=== PATIENT | female | born 1980 | race Caucasian/White ===

== ENCOUNTER 2023-06-19 10:39 | Outpatient (OUT) | payer OTHER, SELFPAY ==
--- NOTE | 2023-06-19 10:41 | MM_ITS ---
Patient: JULIANA ARGUETA Exam Date: 06/19/2023 : 1980 Gender:F Ordering : MRS. TANNER LONG . Admission #: [id number] Family : Order #: [id number] CLICK HERE TO VIEW EXAM RADIOLOGY REPORT PROCEDURE: MM TOMOSYNTHESIS SCREENING BI COMPARISON: MG MAMM SCREEN 3D [place] CAD, 01/31/2022. MG MAMM SCREEN [place] W CAD, 11/16/2020. INDICATIONS: Screening mammogram Z12.31 Calculator Name NCI Breast Cancer Risk Assessment Tool 5 Year Breast Cancer Risk 1.00% Lifetime Breast Cancer Risk 13.20% Personal Breast Cancer No Personal Ovarian Cancer No Treatments None Family Cancers Grandmother-paternal with breast cancer at age ~50; Aunt-paternal with breast cancer at age 50; Grandmother-paternal with uterine,lung cancer at age ~60. LOCATION: [facility] BREAST COMPOSITION: Scattered areas fibroglandular density. FINDINGS: DIAGNOSTIC CATEGORY 1--NEGATIVE. NO CHANGE FROM COMPARISON ASSESSMENT. Scattered benign-appearing lymph nodes are present. RIGHT BREAST: No significant suspicious finding. LEFT BREAST: No significant suspicious finding. RECOMMENDATIONS: ROUTINE MAMMOGRAM AND CLINICAL EVALUATION IN 12 MONTHS. PLEASE NOTE: A NORMAL MAMMOGRAM DOES NOT EXCLUDE THE POSSIBILITY OF BREAST CANCER. A CLINICALLY SUSPICIOUS PALPABLE LUMP SHOULD BE BIOPSIED. Dictated by: Omar Mendez MD on 06/19/2023 at 12:23 Approved by: Omar Mendez MD on 06/19/2023 at 12:25
== END 2023-06-19 10:40 | disposition home or self-care (01) ==
LOC: MAMMO 10:39
PROVIDERS: PCP Nurse Practitioner; Visit Provider Nurse Practitioner
DX: Z12.31 Encounter for screening mammogram for malignant neoplasm of breast (principal); Z80.3 Family history of malignant neoplasm of breast; Z80.1 Family history of malignant neoplasm of trachea, bronchus and lung; Z80.8 Family history of malignant neoplasm of other organs or systems
CPT/HCPCS: 77063; 77067

== ENCOUNTER 2024-08-12 10:27 | Outpatient (OUT) | payer OTHER, SELFPAY ==
--- NOTE | 2024-08-12 10:31 | MM_ITS ---
Patient Name: JULIANA ARGUETA MR#: [id number] : 1980 Exam Date: 08/12/2024 Ordering Doctor: TANNER LONG . RADIOLOGY REPORT PROCEDURE: MM TOMOSYNTHESIS SCREENING BI COMPARISON: MM TOMOSYNTHESIS SCREENING BI, 06/19/2023. MG MAMM SCREEN 3D [place] CAD, 01/31/2022. MG MAMM SCREEN [place] W CAD, 11/16/2020. INDICATIONS: Screening Calculator Name NCI Breast Cancer Risk Assessment Tool 5 Year Breast Cancer Risk 1.10% Lifetime Breast Cancer Risk 13.00% Personal Breast Cancer No Personal Ovarian Cancer No Treatments None Family Cancers Grandmother-paternal with breast cancer at age ~50; Aunt-paternal with breast cancer at age 50; Grandmother-paternal with uterine,lung cancer at age ~60. LOCATION: [facility] BREAST COMPOSITION: There are scattered areas of fibroglandular density. FINDINGS: DIAGNOSTIC CATEGORY 1--NEGATIVE. RIGHT BREAST: No significant suspicious finding. No significant change has occurred. LEFT BREAST: No significant suspicious finding. No significant change has occurred. RECOMMENDATIONS: ROUTINE MAMMOGRAM AND CLINICAL EVALUATION IN 12 MONTHS. PLEASE NOTE: A NORMAL MAMMOGRAM DOES NOT EXCLUDE THE POSSIBILITY OF BREAST CANCER. A CLINICALLY SUSPICIOUS PALPABLE LUMP SHOULD BE BIOPSIED. Dictated by: Kralos Ramirez M.D. on 08/12/2024 at 12:04 Approved by: Karlos Ramirez M.D. on 08/12/2024 at 12:05
== END 2024-08-12 10:28 | disposition home or self-care (01) ==
LOC: MAMMO 10:27
PROVIDERS: PCP Nurse Practitioner; Visit Provider Nurse Practitioner
DX: Z12.31 Encounter for screening mammogram for malignant neoplasm of breast (principal); Z80.3 Family history of malignant neoplasm of breast; Z80.1 Family history of malignant neoplasm of trachea, bronchus and lung; Z80.8 Family history of malignant neoplasm of other organs or systems
CPT/HCPCS: 77063; 77067

== ENCOUNTER 2025-07-17 12:13 | Outpatient (OUT) | payer OTHER, SELFPAY ==
--- NOTE | 2025-07-17 12:18 | XR_ITS ---
The [address] [address] Patient Name: JULIANA ARGUETA MRN: [id number] date: 1980 Sex: F Assigned Patient Location: [facility] Current Patient Location: [facility] Accession/Order Number: [id number] Exam Date: 07/17/2025 12:20 Report Date: 07/17/2025 12:52 At the request of: TANNER LONG Procedure: XR cervical spine 5V CERVICAL SPINE - 5 views: CLINICAL HISTORY: Chronic worsening right-sided neck pain. No reported injury. TECHNIQUE: AP, lateral, both oblique and odontoid views were obtained. There is reversal of the normal cervical lordosis no acute fractures are identified. There is slight retrolisthesis of C5 on C6 and C6 on C7 where there is also disc space narrowing and endplate spurring. Mild facet disease is also visualized. On the left, there is slight bony foraminal encroachment at C3-4 and C6-7. On the right, mild to moderate bony foraminal encroachment is present at C5-6. The atlantoaxial relationship is maintained. There is no prevertebral soft tissue swelling. XR/XR cervical spine 5V IMPRESSION: LOSS OF NORMAL CERVICAL LORDOSIS. DEGENERATIVE CHANGES, DESCRIBED. Impression dictated by: Birdie Whatley M.D. 07/17/2025 12:52 PM Dictation Location: [place] [address] Electronically authenticated by: [id number] Y Date: 07/17/2025 12:52
--- OUTSIDE RECORDS SUMMARY | 2025-07-17 12:19 | XMS_ITS | CCD ---
Author Organization [facility] Care Team Providers Care Film Library Clerk Name Role Phone SHREYA, DR ETHAN Swan Admitting Unavailable WEST, DR ETHAN Swan Attending Unavailable WEST, DR ETHAN Swan Consulting Unavailable WEST, DR ETHAN Swan Admitting Unavailable WEST, DR ETHAN Swan Attending Unavailable KARASIK, DR RAMOS Admitting Unavailable KARASIK, DR RAMOS Attending Unavailable KARASIK, DR RAMOS Consulting Unavailable WEST, DR ETHAN Swan Consulting Unavailable WEST, DR ETHAN Swan Admitting Unavailable WEST, DR ETHAN Swan Attending Unavailable WEST, DR ETHAN Swan Consulting Unavailable Amy, Lindsay Gonzales Primary Care Physician Amy, Lindsay Gonzales Attending Unavailable Amy, Lindsay Gonzales Admitting Unavailable Amy, Lindsay Gonzales Attending Unavailable Amy, Lindsay L Admitting Unavailable Amy, Lindsay Gonzales Attending Unavailable Amy, Lindsay Gonzales Attending Unavailable ISSAC, OVI Haley Attending Unavailable ISSAC, OVI Haley Attending Unavailable Amy, Lindsay Gonzales Attending Unavailable Amy, Lindsay Gonzales Admitting Unavailable Amy, Lindsay Gonzales Attending Unavailable Amy, Lindsay Gonzales Attending Unavailable Amy, Lindsay Gonzales Attending Unavailable Amy, Lindsay L Attending Unavailable Medications Current Medications Medication Drug Class(es) Dates Sig (Normalized) Sig (Original) ergocalciferol 1.25 mg oral capsule (1 source) Provitamin D2 Compound Start: 07-04-2024 take 1 capsule by mouth every week ergocalciferol 50,000 intl units Cap See Instructions, TAKE 1 CAPSULE BY MOUTH EVERY WEEK, # 4 cap(s), Refills(s) 11, Pharmacy: [id number], 170, cm, 03/29/24 11:37:00 EDT, Height/Length Dosing, 90.9, kg, 03/29/24 11:37:00 EDT, Weight Dosing Start Date: 07/04/24 Status: Ordered fluconazole 150 mg oral tablet (2 sources) Azole Antifungal Start: 05-29-2023 take 1 tablet by mouth once Diflucan 150 mg Tab 150 mg = 1 tab(s), Oral, Once, # 1 tab(s), Refills(s) 0, Pharmacy: [facility]/pharmacy #[id number], 169, cm, 05/29/23 14:16:00 EDT, Height/Length Dosing, 90, kg, 05/29/23 14:16:00 EDT, Weight Dosing Start Date: 05/29/23 Status: Ordered Problems Active Problems Problem Classification Problem Date Documented Da te Episodic/Chronic Malaise and fatigue (2 sources) Fatigue 05-11-2023 Episodic Mycoses (2 sources) Candidiasis of vagina 05-29-2023 Episodic Other nutritional; endocrine; and metabolic disorders (2 sources) Body mass index 30+ - obesity 05-11-2023 Chronic Unclassified (2 sources) Patient encounter status 05-29-2023 Unclassified (1 source) Cancer cervix screening status 08-01-2024 Past or Other Problems Problem Classification Problem Date Documented Da te Episodic/Chronic Other screening for suspected conditions (not mental disorders or infectious disease) (4 sources) Encounter for screening mammogram for malignant neoplasm of breast; Translations: [ENC SCR MAMMO MALIG NEOPLASM BREAST] Onset: 01-31-2022 Episodic Residual codes; unclassified (1 source) Family history of malignant neoplasm of breast; Translations: [FAMILY HX MALIG NEOPLASM OF BREAST] Onset: 02-04-2022 Episodic Residual codes; unclassified (1 source) Family history of malignant neoplasm of trachea, bronchus and lung; Translations: [FAM HX MALIG NEOPLSM TRACH BRON LNG] Onset: 02-04-2022 Episodic Residual codes; unclassified (1 source) Family history of malignant neoplasm of other genital organs; Translations: [FAM HX MALIG NEOPLSM OTH GENIT ORGN] Onset: 02-04-2022 Episodic Results Test Name Value Interpretation Reference Range Facility Ambulatory Visit Summaryon 1 Ambulatory Visit Summary Ambulatory Visit Summary JIMENA ARGUETA :1980 Visit Date:07/14/2025 Ambulatory Visit Instructions Your Diagnosis Neck pain Trapezius strain Tests Performed XR Spine Cervical 4 or 5 Views -- Results Pending -- Please visit your patient portal for your results or contact your primary care physician. Your Care Team Attending Physician - Lindsay Pérez Primary Care Physician - Lindsay Pérez This Is Your Medications List ergocalciferol (ergocalciferol 50,000 intl units Cap) escitalopram (Lexapro 10 mg Tab) Procedures Performed Appendectomy, delivery. Discharge Vitals Temperature (Temporal Artery) 36.2 ???C Heart Rate (Peripheral) 62 Respiratory Rate 18 Blood Pressure 122/84 Height 170.0 cm Height 67 in Weight 85.4 kg Weight 188.275 lb BMI 29.55 What to do next Scheduled Follow-Up Appointments Thursday 1:00 PM EDT With: Lindsay Pérez Where: [address] [address]- Medications What How Much When Instructions Unchanged ergocalciferol (ergocalciferol 50,000 intl units Cap) See instructions TAKE 1 CAPSULE BY MOUTH EVERY WEEK Unchanged escitalopram (Lexapro 10 mg Tab) 1 Tablets By Mouth Every day Allergies No Known Allergies Problems Ongoing - Any problem that you are currently receiving treatment for. Anxiety BMI 31.0-31.9,adult Cervical cancer screening Fatigue Mild major depression Neck pain Vaginal yeast infection Well woman exam Patient Survey You may receive a survey via text or e-mail asking about your office visit. Please share your experience with us by completing your survey. We appreciate your feedback and thank you for choosing us for your care. Patient Portal You may access all of your results and other medical record information on our secure patient portal. If you are not signed up for this yet, please contact [employer] at [phone] to get signed up today. Language Information Language assistance services are available as needed. Normal [facility] Family Medicine Office/Clini c Noteon 07-14-2025 Family Medicine Office/Clinic Note Family Medicine Office/Clinic Note HPI Staff Pt is here for neck, RT shoulder, back pain Onset: a year ago she said it has got worse in the last month she goes to the gym a lot, she had severe reaction to steroid inj. that almost paralyzed she can barley turn her head when she tries to turn She said the muscles in her neck hurts she has knot on RT side of back Has arthritis in her shoulders She does go to the gym 5-6 days a week History of Present Illness pt presents with neck pain and right trapezius pain. she has had issues with this in the past Review of Systems PHQ Score Initial Depression Screen Score: 0 SCORE Physical Exam Vitals & Measurements T: 36.2 ???C(Temporal Artery) HR: 62(Peripheral) RR: 18 BP: 122/84 SpO2: 99% HT: 170.0 cm HT: 67 in WT: 85.4 kg WT: 188.275 lb BMI: 29.55 General: alert, no acute distress ENMT: oral mucosa moist, no pharyngeal erythema or exudate Cardiovascular: regular rate and rhythm, normal peripheral perfusion Respiratory: Lungs CTA, respirations non labored Extremities: no deformity, no trauma Neurological: oriented x 4, LOC appropriate for age, CN II-XII intact, motor strength equal & normal bilaterally, speech normal Assessment/Plan 1. Neck pain (M54.2: Cervicalgia) pt c/o neck pain that shoots up to the base of her skull. will start with x ray of cervical spine. Kenalog 40 and Toradol 30 given in office today. pt was also encouraged to go to massage therapy. she has been to PT for this in the past and is currently going to the gym and doing stretches as well. RTC 2 weeks. if no improvement may order MRI or refer to ortho for further evaluation Ordered: meloxicam, 15 mg = 1 tab(s), Oral, Daily, # 30 tab(s), Refills(s) 0, Pharmacy: [facility]/pharmacy #[id number], 170, cm, 07/14/25 11:46:00 EDT, Height/Length Dosing, 85.4, kg, 07/14/25 11:46:00 EDT, Weight Dosing XR Spine Cervical 4 or 5 Views 2. Trapezius strain (S46.811A: Strain of other muscles, fascia and tendons at shoulder and upper arm level, right arm, initial encounter) right trapezius pain and tightness. Ordered: meloxicam, 15 mg = 1 tab(s), Oral, Daily, # 30 tab(s), Refills(s) 0, Pharmacy: [facility]/pharmacy #[id number], 170, cm, 07/14/25 11:46:00 EDT, Height/Length Dosing, 85.4, kg, 07/14/25 11:46:00 EDT, Weight Dosing 3. BMI 29.0-29.9,adult (Z68.29: Body mass index [BMI] 29.0-29.9, adult) BMI education Ordered: meloxicam, 15 mg = 1 tab(s), Oral, Daily, # 30 tab(s), Refills(s) 0, Pharmacy: [facility]/pharmacy #[id number], 170, cm, 07/14/25 11:46:00 EDT, Height/Length Dosing, 85.4, kg, 07/14/25 11:46:00 EDT, Weight Dosing Orders: ergocalciferol, See Instructions, TAKE 1 CAPSULE BY MOUTH EVERY WEEK, # 4 cap(s), Refills(s) 11, Pharmacy: [id number], 170, cm, 01/20/25 8:52:00 EDT, Height/Length Dosing, 87.2, kg, 01/20/25 8:52:00 EDT, Weight Dosing ergocalciferol, See Instructions, TAKE 1 CAPSULE BY MOUTH EVERY WEEK, # 4 cap(s), Refills(s) 11, Pharmacy: [id number], 170, cm, 03/29/24 11:37:00 EDT, Height/Length Dosing, 90.9, kg, 03/29/24 11:37:00 EDT, Weight Dosing Follow-up No qualifying data available Problem List/Past Medical History Ongoing Anxiety BMI 29.0-29.9,adult BMI 31.0-31.9,adult Cervical cancer screening Fatigue Mild major depression Neck pain Vaginal yeast infection Well woman exam Historical No qualifying data Procedure/Surgical History Appendectomy, delivery. Medications ergocalciferol 50,000 intl units Cap, See Instructions Lexapro 10 mg Tab, 10 mg= 1 tab(s), Oral, Daily, 4 refills meloxicam 15 mg Tab, 15 mg= 1 tab(s), Oral, Daily Allergies No Known Allergies Social History Alcohol Past, Beer, Wine, Liquor, 1-2 times per week, Stopped age 42 Years., 08/01/2024 Substance Abuse Past. Marijuana. 1-2 times per month. Previous treatment: None., 07/31/2024 Tobacco Former smoker, quit more than 30 days ago, quit 2021 Tobacco Use:., 07/14/2025 Family History Dementia: Grandparent. Hypertension: Mother and Father. Primary malignant neoplasm of female breast: Grandparent. Primary malignant neoplasm of lung: Grandparent. Uterine cancer: Grandparent. Normal [facility] Comment on above: Result Comment: Elec tronically Signed By: Lindsay Pérez\.br\Date and Time Signed: 07/14/25 12:29 EDT Family Medicine Office/Clini c Noteon 01-20-2025 Family Medicine Office/Clinic Note Family Medicine Office/Clinic Note HPI Staff Jimena is a 44 year old female presenting for 5 week follow up JOSE GUADALUPE 12/16/24 HORACIO PHQ-9: 8 HORACIO 10 started Lexapro Follow up for Mental Status: Medication adherence- Yes, takes medication as prescribed Medication refill needed: _ Suicidal thoughts-Not at this time Most recent HORACIO: 4 Most recent PHQ: 2 Pt states she has noticed a difference and is feeling better History of Present Illness pt presents today for follow up on depression and anxiety Review of Systems PHQ Score Initial Depression Screen Score: 0 SCORE Physical Exam Vitals & Measurements HR: 68(Peripheral) RR: 18 BP: 110/70 SpO2: 98% HT: 170.0 cm HT: 67 in WT: 87.15 kg WT: 192.133 lb BMI: 30.16 General: alert, no acute distress ENMT: oral mucosa moist, no pharyngeal erythema or exudate Cardiovascular: regular rate and rhythm, normal peripheral perfusion Respiratory: Lungs CTA, respirations non labored Extremities: no deformity, no trauma Neurological: oriented x 4, LOC appropriate for age, CN II-XII intact, motor strength equal & normal bilaterally, speech normal Assessment/Plan 1. Anxiety (F41.9: Anxiety disorder, unspecified) HORACIO has improved. pt is feeling better. will refill 10mg dose. all questions answered. RTC as needed Ordered: escitalopram, 5 mg = 1 tab(s), Oral, Daily, # 90 tab(s), Refills(s) 0, Pharmacy: [facility]/pharmacy #[id number], 170, cm, 12/16/24 9:11:00 EDT, Height/Length Dosing, 86.5, kg, 12/16/24 9:11:00 EDT, Weight Dosing 2. BMI 30.0-30.9,adult (Z68.30: Body mass index [BMI] 30.0-30.9, adult) BMI education 3. Non-smoker (Z78.9: Other specified health status) continue not smoking Ordered: escitalopram, 5 mg = 1 tab(s), Oral, Daily, # 90 tab(s), Refills(s) 0, Pharmacy: [facility]/pharmacy #[id number], 170, cm, 12/16/24 9:11:00 EDT, Height/Length Dosing, 86.5, kg, 12/16/24 9:11:00 EDT, Weight Dosing Orders: escitalopram, 10 mg = 1 tab(s), Oral, Daily, # 90 tab(s), Refills(s) 1, Pharmacy: [facility]/pharmacy #[id number], 170, cm, 01/20/25 8:52:00 EDT, Height/Length Dosing, 87.2, kg, 01/20/25 8:52:00 EDT, Weight Dosing Follow-up No qualifying data available Problem List/Past Medical History Ongoing Anxiety BMI 31.0-31.9,adult Cervical cancer screening Fatigue Mild major depression Vaginal yeast infection Well woman exam Historical No qualifying data Procedure/Surgical History Appendectomy, delivery. Medications ergocalciferol 50,000 intl units Cap, See Instructions Lexapro 10 mg Tab, 10 mg= 1 tab(s), Oral, Daily, 1 refills Allergies No Known Allergies Social History Alcohol Past, Beer, Wine, Liquor, 1-2 times per week, Stopped age 42 Years., 08/01/2024 Substance Abuse Past. Marijuana. 1-2 times per month. Previous treatment: None., 07/31/2024 Tobacco Former smoker, quit more than 30 days ago, quit 2021 Tobacco Use:., 08/01/2024 Family History Dementia: Grandparent. Hypertension: Mother and Father. Primary malignant neoplasm of female breast: Grandparent. Primary malignant neoplasm of lung: Grandparent. Uterine cancer: Grandparent. Normal [facility] Comment on above: Result Comment: Elec tronically Signed By: Lindsay Pérez\.br\Date and Time Signed: 01/20/25 09:28 EDT Family Medicine Office/Clini c Noteon 03-14-2025 Family Medicine Office/Clinic Note Family Medicine Office/Clinic Note [facility] Staff Jimena is a 44 year old female presenting to discuss mood HORACIO: 10 PHQ-9: 8 Pt doesn't like the way she is feeling, doesn't feel like herself feeling very pinto, snappy. Pt feels she is gluten intolderant History of Present Illness pt presents today with worsening mood swings Review of Systems PHQ Score Initial Depression Screen Score: 6 SCORE Detailed Depression Screen Score: 8 Total Depression Screen Score: 14 Physical Exam Vitals & Measurements HR: 66(Peripheral) RR: 18 BP: 126/84 SpO2: 99% HT: 67 in HT: 170.0 cm WT: 86.5 kg WT: 190.7 lb BMI: 29.93 General: alert, no acute distress ENMT: oral mucosa moist, no pharyngeal erythema or exudate Cardiovascular: regular rate and rhythm, normal peripheral perfusion Respiratory: Lungs CTA, respirations non labored Extremities: no deformity, no trauma Neurological: oriented x 4, LOC appropriate for age, CN II-XII intact, motor strength equal & normal bilaterally, speech normal Assessment/Plan 1. Mild major depression (F32.0: Major depressive disorder, single episode, mild) PQH9-8 pt feels she is just very irritable and anxious. is a little tearful during visit. will start lexapro 5mg. pt will return in 5 weeks for follow up. denies suicidal ideations. states I just don't want to be so angry all the time. Ordered: escitalopram, 5 mg = 1 tab(s), Oral, Daily, # 90 tab(s), Refills(s) 0, [id number], 170, cm, 12/16/24 9:11:00 EDT, Height/Length Dosing, 86.5, kg, 12/16/24 9:11:00 EDT, Weight Dosing 2. Anxiety (F41.9: Anxiety disorder, unspecified) HORACIO 10 see above Ordered: escitalopram, 5 mg = 1 tab(s), Oral, Daily, # 90 tab(s), Refills(s) 0, [id number], 170, cm, 12/16/24 9:11:00 EDT, Height/Length Dosing, 86.5, kg, 12/16/24 9:11:00 EDT, Weight Dosing 3. BMI 29.0-29.9,adult (Z68.29: Body mass index [BMI] 29.0-29.9, adult) BMI education given Ordered: escitalopram, 5 mg = 1 tab(s), Oral, Daily, # 90 tab(s), Refills(s) 0, [id number], cm, 12/16/24 9:11:00 EDT, Height/Length Dosing, 86.5, kg, 12/16/24 9:11:00 EDT, Weight Dosing 4. Non-smoker (Z78.9: Other specified health status) continue not smoking Ordered: escitalopram, 5 mg = 1 tab(s), Oral, Daily, # 90 tab(s), Refills(s) 0, [id number], cm, 12/16/24 9:11:00 EDT, Height/Length Dosing, 86.5, kg, 12/16/24 9:11:00 EDT, Weight Dosing fluconazole, 150 mg = 1 tab(s), Oral, Once, # 1 tab(s), Refills(s) 0, [id number] 169, cm, 05/29/23 14:16:00 EDT, Height/Length Dosing, 90, kg, 05/29/23 14:16:00 EDT, Weight Dosing Follow-up No qualifying data available Problem List/Past Medical History Ongoing Anxiety BMI 31.0-31.9,adult Cervical cancer screening Fatigue Mild major depression Vaginal yeast infection Well woman exam Historical No qualifying data Procedure/Surgical History Appendectomy, delivery. Medications ergocalciferol 50,000 intl units Cap, See Instructions Lexapro 5 mg oral tablet, 5 mg= 1 tab(s), Oral, Daily Allergies No Known Allergies Social History Alcohol Past, Beer, Wine, Liquor, 1-2 times per week, Stopped age 42 Years., 08/01/2024 Substance Abuse Past. Marijuana. 1-2 times per month. Previous treatment: None., 07/31/2024 Tobacco Former smoker, quit more than 30 days ago, quit 2021 Tobacco Use:., 08/01/2024 Family History Dementia: Grandparent. Hypertension: Mother and Father. Primary malignant neoplasm of female breast: Grandparent. Primary malignant neoplasm of lung: Grandparent. Uterine cancer: Grandparent. Normal [facility] Comment on above: Result Comment: Elec tronically Signed By: Lindsay Pérez\Date and Time Signed: 12/16/24 10:23 EDT PAP [id number] 08-09-2024 Cytology report Cyto stain Doc (Cvx/Vag) Note Invalid Interpretation Code [facility] Comment on above: Result Comment: TEST S RESULT FLAG UNITS REF RANGE LAB Clinician Provided Cytology Information No. of containers..01 ThinPrep Vial DIAGNOSIS: 01 NEGATIVE FOR INTRAEPITHELIAL LESION OR MALIGNANCY. Specimen adequacy: 01 Satisfactory for evaluation. Endocervical and/or squamous metaplastic cells (endocervical component) are present. Performed by: Buck Macias, Perforator Operator (ASCP) . 01 Note: Note 01 The Pap smear is a screening test designed to aid in the detection of premalignant and malignant conditions of the uterine cervix. It is not a diagnostic procedure and should not be used as the sole means of detecting cervical cancer. Both false-positive and false-negative reports do occur. Test Methodology: Note 01 This liquid based ThinPrep(R) pap test was screened with the use of an image guided system. HPV Genotype Reflex Note 01 Criteria not met, HPV Genotype not performed. FLAG LEGEND: L-Low Normal,H-High Normal,LL-Alert Low,HH-Alert High <-Panic Low,>-Panic High,A-Abnormal,AA-Critical Abnormal Performed at: [address] [id number] Mitzi Hyman MD, Performed By: #### 1 [id number] #### [facility] [address] [place] [address] HPV 16+18+31+33+35+39+45+5 1+52+56+58+59+66+68 DNA Probe+sig amp Ql (Cvx) Negative Invalid Interpretation Code Negative [facility] Comment on above: Result Comment: This nucleic acid amplification test detects fourteen high-risk HPV types (16,18,31,33,35,39,45,51,52,56,58,59,66,68) without differentiation. Performed at: [address] [id number] MD Boogie Cartagena Performed at: =[address] [id number] MD Boogie Cartagena Performed By: #### 1 [id number] #### [facility] [address] [place] [address] Ambulatory Visit Summary Ambulatory Visit Summary Ambulatory Visit Summary JIMENA ARGUETA :1980 Visit Date:08/01/2024 Ambulatory Visit Instructions Your Diagnosis Well woman exam Cervical cancer screening BMI 28.0-28.9,adult Overweight (BMI 25.0-29.9) Former smoker Your Care Team Attending Physician - Lindsay Pérez Primary Care Physician - Lindsay Pérez This Is Your Medications List ergocalciferol (ergocalciferol 50,000 intl units Cap) fluconazole (Diflucan 150 mg Tab) Procedures Performed Appendectomy, delivery. Discharge Vitals Temperature (Temporal Artery) 36.5 ???C Heart Rate (Peripheral) 78 Respiratory Rate 18 Blood Pressure 116/68 Height 170.0 cm Height 67 in Weight 83.25 kg Weight 183.15 lb BMI 28.81 Medications What How Much When Why Instructions Unchanged ergocalciferol (ergocalciferol 50,000 intl units Cap) See instructions TAKE 1 CAPSULE BY MOUTH EVERY WEEK Unchanged fluconazole (Diflucan 150 mg Tab) 1 Tablets By Mouth Once Well woman exam Vaginal yeast infection BMI 31.0-31.9,adult Non-smoker Allergies No Known Allergies Problems Ongoing - Any problem that you are currently receiving treatment for. BMI 31.0-31.9,adult Cervical cancer screening Fatigue Vaginal yeast infection Well woman exam Patient Survey You may receive a survey via text or e-mail asking about your office visit. Please share your experience with us by completing your survey. We appreciate your feedback and thank you for choosing us for your care. Normal [facility] CBC w/ Auto Diffon 4 Basophils/100 WBC (Bld) 0.2 % Normal 0.0-2.0 [facility] Comment on above: Performed By: #### 2 [id number] #### [facility] [address] [place] [address] Basophils/Leukocytes Auto (Bld) [Pure # fraction] 0.0 E9/L Normal 0.0-0.2 [facility] Comment on above: Performed By: #### 2 [id number] #### [facility] [address] [place] [address] Eosinophils (Bld) [#/Vol] 0.0 E9/L Normal 0.0-0.5 [facility] Comment on above: Performed By: #### 2 [id number] #### [facility] [address] [place] [address] Eosinophils/100 WBC (Bld) 0.2 % Normal 0.0-8.0 [facility] Comment on above: Performed By: #### 2 [id number] #### [facility] [address] [place] [address] Erythrocyte distribution width (RBC) [Ratio] 13.0 % Normal 10.9-14.2 [facility] Comment on above: Performed By: #### 2 [id number] #### [facility] [address] [place] [address] Hematocrit (Bld) [Volume fraction] 39.9 % Normal 34.0-46.0 [facility] Comment on above: Performed By: #### 2 [id number] #### [facility] [address] [place] [address] Hemoglobin (Bld) [Mass/Vol] 13.7 g/dL Normal 12.0-16.0 [facility] Comment on above: Performed By: #### 2 [id number] #### [facility] [address] [place] [address] Lymphocytes (Bld) [#/Vol] 1.4 E9/L Normal 1.0-4.0 [facility] Comment on above: Performed By: #### 2 [id number] #### [facility] [address] [place] [address] Lymphocytes/100 WBC (Bld) 30.9 % Normal 14.0-50.0 [facility] Comment on above: Performed By: #### 2 [id number] #### [facility] [address] [place] [address] MCH (RBC) [Entitic mass] 30.6 pg Normal 27.0-34.0 [facility] Comment on above: Performed By: #### 2 [id number] #### [facility] [address] [place] [address] MCHC (RBC) [Mass/Vol] 34.3 g/dL Normal 31.4-36.0 [facility] Comment on above: Performed By: #### 2 [id number] #### [facility] [address] [place] [address] MCV (RBC) [Entitic vol] 89.0 fL Normal 80.0-100.0 [facility] Comment on above: Performed By: #### 2 [id number] #### [facility] [address] [place] [address] Monocytes (Bld) [#/Vol] 0.3 E9/L Normal 0.2-1.0 [facility] Comment on above: Performed By: #### 2 [id number] #### [facility] [address] [place] [address] Neutrophils (Bld) [#/Vol] 2.9 E9/L Normal 2.0-7.5 [facility] Comment on above: Performed By: #### 2 [id number] #### [facility] [address] [place] [address] Neutrophils/100 WBC (Bld) 62.5 % Normal 36.0-75.0 [facility] Comment on above: Performed By: #### 2 [id number] #### [facility] [address] [place] [address] Platelet 226.0 E9/L Normal 150.0-500.0 [facility] Comment on above: Performed By: #### 2 [id number] #### [facility] [address] [place] [address] Platelet mean volume (Bld) [Entitic vol] 9.6 fL Normal 6.4-10.8 [facility] Comment on above: Performed By: #### 2 [id number] #### [facility] [address] [place] [address] RBC (Bld) [#/Vol] 4.5 E12/L Normal 4.3-5.9 [facility] Comment on above: Performed By: #### 2 [id number] #### [facility] [address] [place] [address] WBC corrected for nucl RBC Auto (Bld) [#/Vol] 4.6 E9/L Normal 4.0-11.0 [facility] Comment on above: Performed By: #### 2 [id number] #### [facility] [address] [place] [address] CHEMISTRYOrdered By: SYSTEM SYSTEM on 08-01-2024 25-hydroxyvitamin D3 [Mass/Vol] 51.5 ng/mL Normal 30.0 - 100.0 ng/mL Remisol Chem Albumin [Mass/Vol] 4.1 g/dL Normal 3.3 - 5.0 gm/dL [facility] Albumin/Globulin [Mass ratio] 1.9 {ratio} Normal 1.1 - 2.2 [facility] ALP [Catalytic activity/Vol] 32 [iU]/d Normal 21 - 98 Int._Unit/L [facility] ALT No additional P-5'-P [Catalytic activity/Vol] 11 [iU]/d Normal 6 - 46 Int._Unit/L [facility] Anion gap [Moles/Vol] 8 mmol/L Normal 6 - 16 mEq/L R em[facility] AST [Catalytic activity/Vol] 16 [iU]/d Normal 5 - 43 Int._Unit/L [facility] Bilirubin [Mass/Vol] 0.4 mg/dL Normal 0.0 - 1 .1 mg/dL [facility] Calcium [Mass/Vol] 8.9 mg/dL Normal 8.9 - 11. 1 mg/dL [facility] Chloride [Moles/Vol] 106 mmol/L Normal 101 - 1 11 mmol/L [facility] Cholesterol [Mass/Vol] 160 mg/dL Normal 120 - 200 mg/dL [facility] Cholesterol in HDL [Mass/Vol] 50 mg/dL Invalid Interpretation Code [facility] Comment on above: Result Comment: '>= 60 LOW RISK' '<= 40 HIGH RISK' Cholesterol in LDL [Mass/Vol] 103 mg/dL Normal <=129mg/dL [facility] Cholesterol in VLDL [Mass/Vol] 13 mg/dL Normal 7 - 40 mg/dL [facility] CO2 [Moles/Vol] 27 mmol/L Normal 21 - 31 mmol/L [facility] Creatinine [Mass/Vol] 0.7 mg/dL Normal 0.5 - 1.3 mg/dL [facility] eGFR 109 mL/min/1.73 m2 Normal >=59mL/mi n/1. 73 m2 [facility] Globulin (S) [Mass/Vol] 2.2 g/dL Normal 1.4 - 4.0 gm/dL [facility] Glucose [Mass/Vol] 89 mg/dL Normal 55 - 199 mg/dL [facility] Potassium [Moles/Vol] 3.9 mmol/L Normal 3.5 - 5.3 mmol/L [facility] Protein [Mass/Vol] 6.3 g/dL Normal 6.0 - 7.8 gm/dL [facility] Sodium [Moles/Vol] 137 mmol/L Normal 135 - 145 mmol/L [facility] Triglyceride [Mass/Vol] 66 mg/dL Normal <=149mg/dL [facility] TSH Qn 3.74 m[IU]/L Normal 0.34 - 5.60 mcIU/mL [facility] Urea nitrogen [Mass/Vol] 9 mg/dL Normal 5 - 21 mg/dL [facility] Urea nitrogen/Creatinine [Mass ratio] 13 mg/mg Normal 10 - 20 [facility] CMPon 08-01-2024 Albumin [Mass/Vol] 4.1 g/dL Normal 3.3-5.0 [facility] Comment on above: Performed By: #### 2 [id number] #### [facility] [address] [place] [address] Albumin/Globulin (S) [Mass conc ratio] 1.9 Normal 1.1-2.2 [facility] Comment on above: Performed By: #### 2 [id number] #### [facility] [address] [place] [address] ALP [Catalytic activity/Vol] 32 Int._Unit/L Normal 21-98 [facility] Comment on above: Performed By: #### 2 [id number] #### [facility] [address] [place] [address] ALT No additional P-5'-P [Catalytic activity/Vol] 11 Int._Unit/L Normal 6-46 [facility] Comment on above: Performed By: #### 2 [id number] #### [facility] [address] [place] [address] Anion gap [Moles/Vol] 8 mmol/L Normal 6-16 [facility] Comment on above: Performed By: #### 2 [id number] #### [facility] [address] [place] [address] AST [Catalytic activity/Vol] 16 Int._Unit/L Normal 5-43 [facility] Comment on above: Performed By: #### 2 [id number] #### [facility] [address] [place] [address] Bilirubin [Mass/Vol] 0.4 mg/dL Normal 0.0-1.1 [facility] Comment on above: Performed By: #### 2 [id number] #### [facility] [address] [place] [address] Calcium [Mass/Vol] 8.9 mg/dL Normal 8.9-11.1 [facility] Comment on above: Performed By: #### 2 [id number] #### [facility] [address] [place] [address] Chloride [Moles/Vol] 106 mmol/L Normal 101-111 [facility] Comment on above: Performed By: #### 2 [id number] #### [facility] [address] [place] [address] CO2 [Moles/Vol] 27 mmol/L Normal 21-31 [facility] Comment on above: Performed By: #### 2 [id number] #### [facility] [address] [place] [address] Creatinine [Mass/Vol] 0.7 mg/dL Normal 0.5-1.3 [facility] Comment on above: Performed By: #### 2 [id number] #### [facility] [address] [place] [address] Globulin (S) [Mass/Vol] 2.2 g/dL Normal 1.4-4.0 [facility] Comment on above: Performed By: #### 2 [id number] #### [facility] [address] [place] [address] Glucose [Mass/Vol] 89 mg/dL Normal 55-199 [facility] Comment on above: Performed By: #### 2 [id number] #### [facility] [address] [place] [address] Potassium [Moles/Vol] 3.9 mmol/L Normal 3.5-5.3 [facility] Comment on above: Performed By: #### 2 [id number] #### [facility] [address] [place] [address] Protein [Mass/Vol] 6.3 g/dL Normal 6.0-7.8 [facility] Comment on above: Performed By: #### 2 [id number] #### [facility] [address] [place] [address] Sodium [Moles/Vol] 137 mmol/L Normal 135-145 [facility] Comment on above: Performed By: #### 2 [id number] #### [facility] [address] [place] [address] Urea nitrogen [Mass/Vol] 9 mg/dL Normal 5-21 [facility] Comment on above: Performed By: #### 2 [id number] #### [facility] [address] [place] [address] Urea nitrogen/Creatinine [Mass ratio] 13 No Units Normal 10-20 [facility] Comment on above: Performed By: #### 2 [id number] #### [facility] [address] [place] [address] Family Medicine Office/Clini c Noteon 08-01-2024 Family Medicine Office/Clinic Note Family Medicine Office/Clinic Note HPI Staff Jimena is a 44 year old female presenting with yearly/pap/labs Woman check up: Last pap: last year Results of lap pap: normal Where was it done: here hx: # of pregnancies... 3 abortions... 2 live births... 1 living children...1 menstrual cycle (n ormal,heavy,ect): irregular bleeding History of STD: yes 15 years ago Do you want tested for STD today: no Vaginal discharge, odor, itching: no Self breast exam at home? yes monthly Hx of breast, cervical or uterine cancer in the family: breast cancer, grandmother Hysterectomy: NA Mammogram: The Thursday @ [facility] History of Present Illness pt presents today for well woman exam Review of Systems PHQ Score Initial Depression Screen Score: 2 SCORE Physical Exam Vitals & Measurements T: 36.5 ???C(Temporal Artery) HR: 78(Peripheral) RR: 18 BP: 116/68 SpO2: 98% HT: 67 in HT: 170.0 cm WT: 83.25 kg WT: 183.15 lb BMI: 28.81 General: Well developed, well nourished, in no acute distress Neck: Neck supple. No masses or palpable cervical nodes. Trachea midline. Thyroid without nodules, masses, tenderness, or enlargement Breast: No mass, nodule, discharge, or erythema bilaterally, and no axillary lymphadenopathy Lungs: Normal respiratory effort and clear to auscultation Cardio: Regular rate and rhythm, normal S1 and S2, no murmur, no rub Abdomen: Soft, non-distended, non-tender, normal bowel sounds x4 Gyno: normal external genitalia. Urethra no discharge. Vagina normal without lesions, no vaginal discharge. Cervix normal, without lesions. Uterus normal. No adnexal masses. Pap obtained Neurologic: Grossly normal Skin: [place], moist, no tenting Lymph Nodes: No cervical adenopathy, nodes normal Mental Status: Alert and oriented x3. Normal mood and affect Assessment/Plan 1. Well woman exam (Z01.419: Encounter for gynecological examination (general) (routine) without abnormal findings) pt presents today for well woman exam. pt is due for wellness labs today as well. she is scheduled for mammogram on Thursday at [facility]. Pap obtained without difficulty. all questions answered. RTC as needed Ordered: CBC w/ Auto Diff Comprehensive Metabolic Panel Est Preventative 40 to 64 years Lipid Panel PAP w/ HPV and Genotype rflx Thyroid Stimulating Hormone 2. Cervical cancer screening (Z12.4: Encounter for screening for malignant neoplasm of cervix) pap obtained Ordered: Est Preventative 40 to 64 years [address] PAP [id number] w/ HPV and Genotype rflx 3. BMI 28.0-28.9,adult (Z68.28: Body mass index [BMI] 28.0-28.9, adult) BMI education given Ordered: Est Preventative 40 to 64 years 4. Overweight (BMI 25.0-29.9) (E66.3: Overweight) see above Ordered: Est Preventative 40 to 64 years [address] 5. Former smoker (Z87.891: Personal history of nicotine dependence) continue not smoking Ordered: Est Preventative 40 to 64 years Orders: Vitamin D 25 Hydroxy Follow-up No qualifying data available Problem List/Past Medical History Ongoing BMI 31.0-31.9,adult Cervical cancer screening Fatigue Vaginal yeast infection Well woman exam Historical No qualifying data Procedure/Surgical History Appendectomy, delivery. Medications Diflucan 150 mg Tab, 150 mg= 1 tab(s), Oral, Once, Not taking ergocalciferol 50,000 intl units Cap, See Instructions Allergies No Known Allergies Social History Alcohol Past, Beer, Wine, Liquor, 1-2 times per week, Stopped age 42 Years., 08/01/2024 Substance Abuse Past. Marijuana. 1-2 times per month. Previous treatment: None., 07/31/2024 Tobacco Former smoker, quit more than 30 days ago, quit 2021 Tobacco Use:., 08/01/2024 Family History Dementia: Grandparent. Hypertension: Mother and Father. Primary malignant neoplasm of female breast: Grandparent. Primary malignant neoplasm of lung: Grandparent. Uterine cancer: Grandparent. Normal [facility] Comment on above: Result Comment: Elec tronically Signed By: Amy MCDERMOTT, Lindsay Gonzales\.br\Date and Time Signed: 08/01/24 10:25 EDT HEMATOLOGYOrdered By: SYSTEM SYSTEM on 08-01-2024 Basophils/100 WBC (Bld) 0.2 % Normal 0.0 - 2.0 % [facility] Basophils/Leukocytes Auto (Bld) [Pure # fraction] 0.0 E9/L Normal 0.0 - 0.2 E9/L [facility] Eosinophils (Bld) [#/Vol] 0.0 E9/L Normal 0.0 - 0.5 E9/L [facility] Eosinophils/100 WBC (Bld) 0.2 % Normal 0.0 - 8.0 % [facility] Erythrocyte distribution width (RBC) [Ratio] 13.0 % Normal 10.9 - 14.2 % [facility] Hematocrit (Bld) [Volume fraction] 39.9 % Normal 34.0 - 46.0 % [facility] Hemoglobin (Bld) [Mass/Vol] 13.7 g/dL Normal 12.0 - 16.0 gm/dL [facility] Lymphocytes (Bld) [#/Vol] 1.4 E9/L Normal 1.0 - 4.0 E9/L [facility] Lymphocytes/100 WBC (Bld) 30.9 % Normal 14.0 - 50.0 % [facility] MCH (RBC) [Entitic mass] 30.6 pg Normal 27.0 - 34.0 pg [facility] MCHC (RBC) [Mass/Vol] 34.3 g/dL Normal 31.4 - 36.0 gm/dL [facility] MCV (RBC) [Entitic vol] 89.0 fL Normal 80.0 - 100.0 fL [facility] Monocytes (Bld) [#/Vol] 0.3 E9/L Normal 0.2 - 1.0 E9/L [facility] Monocytes/100 WBC (Bld) 6.2 % Normal 4.0 - 14.0 % [facility] Neutrophils (Bld) [#/Vol] 2.9 E9/L Normal 2.0 - 7.5 E9/L [facility] Neutrophils/100 WBC (Bld) 62.5 % Normal 36.0 - 75.0 % [facility] Platelet 226.0 E9/L Normal 150.0 - 500.0 E9/L [facility] Platelet mean volume (Bld) [Entitic vol] 9.6 fL Normal 6.4 - 10.8 fL [facility] RBC (Bld) [#/Vol] 4.5 E12/L Normal 4.3 - 5.9 E12/L [facility] WBC corrected for nucl RBC Auto (Bld) [#/Vol] 4.6 E9/L Normal 4.0 - 11.0 E9/L [facility] Lipid Panelon 08-01-2024 Cholesterol [Mass/Vol] 160 mg/dL Normal 120-200 [facility] Comment on above: Performed By: #### 2 [id number] #### [facility] [address] [place] [address] Cholesterol in HDL [Mass/Vol] 50 mg/dL Invalid Interpretation Code [facility] Comment on above: Result Comment: '>= 60 LOW RISK' '<= 40 HIGH RISK' Performed By: #### 2 [id number] #### [facility] [address] [place] [address] Cholesterol in LDL [Mass/Vol] 103 mg/dL Normal <=129 [facility] Comment on above: Performed By: #### 2 [id number] #### [facility] [address] [place] [address] Cholesterol in VLDL [Mass/Vol] 13 mg/dL Normal 7-40 [facility] Comment on above: Performed By: #### 2 [id number] #### [facility] [address] [place] [address] Triglyceride [Mass/Vol] 66 mg/dL Normal <=149 [facility] Comment on above: Performed By: #### 2 [id number] #### [facility] [address] [place] [address] PAP [id number] 08-01-2024 Gynecological Body Site ENDOCERVIX Normal [facility] Comment on above: Performed By: #### 1 [id number] #### [facility] [address] [place] [address] TSHon 08-01-2024 TSH Qn 3.74 m[IU]/L Normal 0.34-5.60 [facility] Comment on above: Performed By: #### 2 [id number] #### [facility] [address] [place] [address] Vitamin D 25 Hydroxyon 08-01 25-hydroxyvitamin D3 [Mass/Vol] 51.5 ng/mL Normal 30.0-100.0 [facility] Comment on above: Performed By: #### 5 [id number] #### [facility] [address] [place] [address] eGFRon 08-01-2024 eGFR 109 mL/min/1.73 m2 Normal >=59 [facility] Comment on above: Performed By: #### 1 [id number] #### [facility] [address] [place] [address] Family Medicine Office/Clini c Noteon 03-29-2024 Family Medicine Office/Clinic Note HPI Staff Jimena is a 43 year old female presenting for acute visit Right side started . Worse Thursday Acute: pulled something in back, having back pain There is lower back- morning stretches she felt something pop. Had Cortisone shot from ER 2020... She did have PT years ago for this Pain characteristics: Pain location: right side neck, shoulder blade Intensity:6/10 right now but laying down it is worse Onset: Stretching Medication used: Been icing, 4 ibuprofen this morning History of Present Illness 43 year old patient of Chaz Reyes CNP presents today with her for an acute visit for trapezius strain. She reports she was stretching on morning last week and felt something pop in the region of her right scapula. She states she can usually work a muscle strain out but this time it is not happening for her. She has tried ibuprofen, meloxicam, and ice without any relief. She states she had this back in 2020 and received a cortisone injection in the C5-C6 area of her neck. She does not want an injection in her neck today. Review of Systems PHQ Score Initial Depression Screen Score: 0 SCORE Physical Exam Vitals & Measurements HT: 67 in HT: 170 cm WT: 90.9 kg WT: 199.98 lb BMI: 31.45 General: alert, no acute distress Skin: warm, dry Head: no trauma, normocephalic Neck: Trachea midline, no adenopathy, no tenderness Cardiovascular: regular rate and rhythm, normal peripheral perfusion Respiratory: Lungs CTA, respirations non labored Back: Moderate tenderness over the left scapula region radiating into the right neck area , Normal ROM, Normal alignment. Extremities: no deformity, no trauma; full ROM of right shoulder Neurological: oriented x 4, LOC appropriate for age speech normal Psychiatric: cooperative, affect appropriate for age, normal judgement, normal psychiatric thoughts. Assessment/Plan 1. Trapezius strain (S46.819A: Strain of other muscles, fascia and tendons at shoulder and upper arm level, unspecified arm, initial encounter) Encouraged to continue with ice for discomfort Start the Medrol Dose pack as instructed Explained to patient she should not operate machinery while taking the tizanidine 4 mg one tablet po every 8 hours Encouraged to contact this provider if no improvement by Thursday Ordered: methylPREDNISolone, = 1 packet(s), Oral, As Directed, as directed on package labeling, X 6 day(s), # 21 tab(s), Refills(s) 0, Pharmacy: [facility]/pharmacy #[id number], 170, cm, 03/29/24 11:37:00 EDT, Height/Length Dosing, 90.9, kg, 03/29/24 11:37:00 EDT, Weight Dosing tizanidine, 4 mg = 1 tab(s), Oral, q8hr, X 7 day(s), # 21 tab(s), Refills(s) 0, Pharmacy: [facility]/pharmacy #[id number], 170, cm, 03/29/24 11:37:00 EDT, Height/Length Dosing, 90.9, kg, 03/29/24 11:37:00 EDT, Weight Dosing Follow-up No qualifying data available Patient Education Muscle Strain, Jqej-kq-Nagu Problem List/Past Medical History Ongoing BMI 31.0-31.9,adult Fatigue Vaginal yeast infection Well woman exam Historical No qualifying data Procedure/Surgical History Appendectomy, delivery. Medications Diflucan 150 mg Tab, 150 mg= 1 tab(s), Oral, Once, Not taking ergocalciferol 50,000 intl units Cap Medrol 4 mg Tab, 1 packet(s), Oral, As Directed tiZANidine 4 mg Tab, 4 mg= 1 tab(s), Oral, q8hr Vitamin D 50,000 intl units (1.25 mg) oral capsule, 00004 International_Unit= 1 cap(s), Oral, qWeek, 3 refills Allergies No Known Allergies Social History Tobacco Former smoker, quit more than 30 days ago, July 2022 quit Tobacco Use:. Never Smokeless Tobacco Use:. Cigarettes, Household tobacco concerns: No., 03/29/2024 Family History Dementia: Grandparent. Hypertension: Mother and Father. Primary malignant neoplasm of female breast: Grandparent. Primary malignant neoplasm of lung: Grandparent. Uterine cancer: Grandparent. Normal [facility] Comment on above: Result Comment: Elec tronically Signed By: OVI DAVENPORT CNP\.br\Date and Time Signed: 03/29/24 12:59 EDT Patient Educationon 03-29-20 Patient Education Orthopedics Muscle Strain A muscle strain, or pulled muscle, happens when a muscle is stretched beyond its normal length. This can tear some muscle fibers and cause pain. Usually, it takes 1?2 weeks to heal from a muscle strain. Full healing normally takes 5?6 weeks. What are the causes? This condition is caused when a sudden force is placed on a muscle and stretches it too far. This can happen with a fall, while lifting, or during sports. What increases the risk? You are more likely to develop a muscle strain if you are an athlete or you do a lot of physical activity. What are the signs or symptoms? ? Pain. ? Tenderness. ? Bruising. ? Swelling. ? Trouble using the muscle. How is this treated? This condition is first treated with DOMINGUEZ therapy. This involves: ? Protecting your muscle from being injured again. ? Resting your injured muscle. ? Icing your injured muscle. ? Putting pressure (compression) on your injured muscle. This may be done with a splint or elastic bandage. ? Raising (elevating) your injured muscle. Your doctor may also recommend medicine for pain. Follow these instructions at home: If you have a splint that can be taken off: ? Wear the splint as told by your doctor. Take it off only as told by your doctor. ? Check the skin around the splint every day. Tell your doctor if you see problems. ? Loosen the splint if your fingers or toes: ? Tingle. ? Become numb. ? Turn cold and blue. ? Keep the splint clean. ? If the splint is not waterproof: ? Do not let it get wet. ? Cover it with a watertight covering when you take a bath or a shower. Managing pain, stiffness, and swelling ? If told, put ice on your injured area. To do this: ? If you have a removable splint, take it off as told by your doctor. ? Put ice in a plastic bag. ? Place a towel between your skin and the bag. ? Leave the ice on for 20 minutes, 2?3 times a day. ? Take off the ice if your skin turns bright red. This is very important. If you cannot feel pain, heat, or cold, you have a greater risk of damage to the area. ? Move your fingers or toes often. ? Raise the injured area above the level of your heart while you are sitting or lying down. ? Wear an elastic bandage as told by your doctor. Make sure it is not too tight. General instructions ? Take [id number] and prescription medicines only as told by your doctor. This may include: ? Medicines for pain and swelling that are taken by mouth or put on the skin. ? Medicines to help relax your muscles. ? Limit your activity. Rest your injured muscle as told by your doctor. Your doctor may say that gentle movements are okay. ? If physical therapy was prescribed, do exercises as told by your doctor. ? Do not put pressure on any part of the splint until it is fully hardened. This may take many hours. ? Do not smoke or use any products that contain nicotine or tobacco. If you need help quitting, ask your doctor. ? Ask your doctor when it is safe to drive if you have a splint. ? Keep all follow-up visits. How is this prevented? Warm up before you exercise. This helps to prevent more muscle strains. Contact a doctor if: ? You have more pain or swelling in the injured area. Get help right away if: ? You have any of these problems in your injured area: ? Numbness. ? Tingling. ? Less strength than normal. Summary ? A muscle strain is an injury that happens when a muscle is stretched beyond normal length. ? This condition is first treated with DOMINGUEZ therapy. This includes protecting, resting, icing, adding pressure, and raising your injury. ? Limit your activity. Rest your injured muscle as told by your doctor. Your doctor may say that gentle movements are okay. ? Warm up before you exercise. This helps to prevent more muscle strains. This information is not intended to replace advice given to you by your health care provider. Make sure you discuss any questions you have with your health care provider. Document Revised: 12/09/2021 Document Reviewed: 12/09/2021 [employer] Patient Education ? 2022 [employer]. [facility] Reminderson 08-04-2023 Reminders - From: Lindsay Pérez To: [facility] - Clinical; Sent: 08/04/2023 09:54:28 EDT Show up: 08/04/2023 09:54:00 EDT Subject: Ambulatory Reminder Due Date/Time: 08/05/2023 09:53:00 EDT Let Jimena know her Vitamin D is low. I sent prescription for Vitamin D to her pharmacy. the rest of her labs are normal Results: Date Result Name Ind Value Ref Range 08/03/2023 9:45 Iron 137 mcg/dL (35 - 153) 08/03/2023 9:45 Transferrin 237 mg/dL (200 - 370) 08/03/2023 9:45 TIBC 332 mcg/dL (250 - 400) 08/03/2023 9:45 Vitamin D 25 Hydroxy ((L)) 22.5 ng/mL (30.0 - 100.0) notified patient vitamin d level is low and RX was sent to pharmacy. This could be a lot of why she feels tired. Advised patient take medicine daily and give it a good 3-4 months if still fatigued then lindsay will look into what to do next. Normal [facility] CHEMISTRYOrdered By: SYSTEM SYSTEM on 08-03-2023 25-hydroxyvitamin D3 [Mass/Vol] 22.5 ng/mL Low 30.0 - 100.0 ng/mL [facility] Comment on above: Interpretive Data: Vitamin D deficiency has been defined as a level of serum 25-OH vitamin D less than 20 ng/mL (1,2) by the [place] of [employer] and an Endocrine Society practice guideline. The Endocrine Society further defined vitamin D insufficiency as a level between 21 and 29 ng/mL (2). 1. IOM ([place]). 2010. Dietary reference intakes for calcium and D. [place]: The National Academies Press. 2. Jairon MF, Brooks EUCEDA, Tracie HOOVER, et al. Evaluation, treatment, and prevention of vitamin D deficiency: an Endocrine Society clinical practice guideline. JCEM. 2010; 96 (7):1911-30. Iron [Mass/Vol] 137 ug/dL Normal 35 - 153 mcg/dL [facility] Iron binding capacity [Mass/Vol] 332 ug/dL Normal 250 - 400 mcg/dL [facility]isol Transferrin [Mass/Vol] 237 mg/dL Normal 200 - 370 mg/dL [facility] Ironon 08-03-2023 Iron [Mass/Vol] 137 microgram/dL Normal 35-153 [facility] Comment on above: Performed By: #### 2 [id number], [id number] #### [facility] [address] [place] [address] TIBC Calculatedon 08-03-2023 Iron binding capacity [Mass/Vol] 332 microgram/dL Normal 250-400 [facility] Comment on above: Performed By: #### 2 [id number], [id number] #### [facility] [address] [place] [address] Transferrin [Mass/Vol] 237 mg/dL Normal 200-370 [facility] Comment on above: Performed By: #### 2 [id number], [id number] #### [facility] [address] [place] [address] Vitamin D 25 Hydroxyon 08-03 25-hydroxyvitamin D3 [Mass/Vol] 22.5 ng/mL Low 30.0-100.0 [facility] Comment on above: Order Comment: [place] [facility] office; waiting for specimen to be received, [id number] 08/03/2023 12:01:03 EDT Result Comment: Vit dooley D deficiency has been defined as a level of serum 25-OH vitamin D less than 20 ng/mL (1,2) by the [place] of [employer] and an Endocrine Society practice guideline. The Endocrine Society further defined vitamin D insufficiency as a level between 21 and 29 ng/mL (2). 1. IOM ([place]). 2010. Dietary reference intakes for calcium and D. [place]: The National Academies Press. 2. Jairon MF, [place], Tracie HOOVER, et al. Evaluation, treatment, and prevention of vitamin D deficiency: an Endocrine Society clinical practice guideline. JCEM. 2010; 96 (7):1911-30. Performed By: #### 2 [id number], [id number] #### [facility] [address] [place] [address] MG MAMM SCREEN 3D DOMINGO CADon 01-31-2022 MG MAMM SCREEN 3D DOMINGO CAD Patient: JIMENA ARGUETA Exam Date: 01/31/2022 : 1980 Gender:F Ordering : DR RICHARD PIMENTEL . Admission #: [id number] Family : Order #: [id number] CLICK HERE TO VIEW EXAM RADIOLOGY REPORT PROCEDURE: MAMMOGRAM SCREENING 3D BILATERAL CAD COMPARISON: MG MAMM SCREEN [place] W CAD, 11/16/2020. INDICATIONS: Screening mammography Calculator Name NCI Breast Cancer Risk Assessment Tool 5 Year Breast Cancer Risk 0.90% Lifetime Breast Cancer Risk 13.40% Personal Breast Cancer No Personal Ovarian Cancer No Treatments None Family Cancers Grandmother-paternal with breast cancer at age 50; Aunt-paternal with breast cancer at age 50; Grandmother-paternal with uterine,lung cancer at age 60. LOCATION: [facility] BREAST COMPOSITION: Scattered areas fibroglandular density. FINDINGS: DIAGNOSTIC CATEGORY 1--NEGATIVE. NO CHANGE FROM COMPARISON ASSESSMENT. RIGHT BREAST: No significant suspicious finding. LEFT BREAST: No significant suspicious finding. RECOMMENDATIONS: ROUTINE MAMMOGRAM AND CLINICAL EVALUATION IN 12 MONTHS. PLEASE NOTE: A NORMAL MAMMOGRAM DOES NOT EXCLUDE THE POSSIBILITY OF BREAST CANCER. A CLINICALLY SUSPICIOUS PALPABLE LUMP SHOULD BE BIOPSIED. Dictated by: Ethan Cash MD on 01/31/2022 at 11:17 Approved by: Ethan Cash MD on 01/31/2022 at 11:31 [facility] Encounters Encounter Date Encounter Type Care Provider Facility Start: 07-28-2025 ambulatory Lindsay L Amy Facility: [facility] Fabian Start: 07-14-2025 End: 07-14-2025 ambulatory Lindsay L Amy Facility:[facility] [place]oxie sushil Start: 01-20-2025 End: 01-20-2025 ambulatory Lindsay L Amy Facility:[facility] Roxie sushil Start: 12-16-2024 End: 12-16-2024 ambulatory Lindsay L Amy Facility:[facility] [place]oxie sushil Start: 08-01-2024 End: 08-01-2024 Lab Drop off Lindsay L Amy [facility] Start: 08-01-2024 End: 08-01-2024 ambulatory Lindsay L Amy Facility:[facility] [place] sushil Start: 03-29-2024 End: 03-29-2024 ambulatory OVI A ISSAC Facility:[facility] [place] sushil Start: 03-18-2024 End: 03-18-2024 ambulatory OVI A ISSAC Facility:[facility] [place] sushil Start: 08-03-2023 End: 08-03-2023 Lab Drop off Lindsay L Amy [facility] Start: 08-03-2023 End: 08-03-2023 ambulatory Lindsay L Amy Facility[facility] Start: 11-14-[address] ETHAN CASH Facilit y:[facility] Start: 06-27-2022 End: 10-06-[address] ETHAN CASH Facility:[facility] Start: 03-14-2022 End: 06-23-[address] ETHAN CASH Facility:[facility] Start: 01-31-2022 End: 02-01-[address] RICHARD PIMENTEL Facility:[facility] Procedures Date Procedure Procedure Detail Performing Clinician Appendectomy Lindsay Reyes section Lindsay Reyes Payers Date Payer Category Payer Unknown [id number] 2.16.84 [id number] 1979 Unknown [id number] 2.16.84 [id number] 1979 Unknown [id number] 2.16.84 [id number] 1979 Unknown [id number] 2.16.84 [id number] 1979 Unknown [id number] 2.16.8 [id number] 1979 Unknown [id number] 2.16.8 [id number] 1979 Unknown [id number] 2.16.8 [id number] 1979 Unknown [id number] 2.16.8 [id number] 1979 Unknown [id number] 2.16.8 [id number] 1979 Unknown [id number] 2.16.8 [id number] 1979 Unknown [id number] 2.16.8 [id number] 1979 Unknown [id number] 2.16.8 [id number] 1979 Unknown [id number] 2.16.8 [id number] 1979 Unknown [id number] 2.16.8 [id number] 1959 Private Health Insurance [id number] 1959 Self-pay 1960 Unknown [id number] Social History Date Type Detail Facility Start: 05-29-2023 End: 08-01-2024 Tobacco smoking status Ex-smoker (finding) [facility] Tobacco smoking status Never [facility] Sex Assigned At Female [facility] Evaluation + Plan note 08-01-2024 Note Date & Type Note Facility 08-01-2024 Evaluation + Plan note Diagnostic Tests PendingPAP w/ HPV and Genotype rflx 08/01/24 [facility] Evaluation + Plan note Note Date & Type Note Facility Evaluation + Plan note No data available for this section [facility] Hospital Discharge instructions Note Date & Type Note Facility Hospital Discharge instructions No data available for this section [facility] Progress note Note Date & Type Note Facility Progress note No data available for this section [facility] Summary Purpose Family History No Family History Records Found No data available for this section No data available for this section No Family History Records FoundNo Family History Records FoundNo Family History Records FoundNo Family History Records FoundNo Family History Records FoundNo Family History Records FoundNo Family History Records FoundNo Family History Records Found Advance Directives No Advanced Directives Records FoundNo Advanced Directives Records FoundNo Advanced Directives Records FoundNo Advanced Directives Records FoundNo Advanced Directives Records FoundNo Advanced Directives Records FoundNo Advanced Directives Records FoundNo Advanced Directives Records FoundNo Advanced Directives Records Found Additional Source Comments INFORMATION SOURCE (unrecogn ized section and content) DATE CREATED AUTHOR 11/14/2022 [facility] DATE CREATED AUTHOR AUTHOR'S ORGANIZ ATION 08/02/2024 [facility] DATE CREATED AUTHOR AUTHOR'S ORGANIZ ATION 08/03/2024 [facility] DATE CREATED AUTHOR AUTHOR'S ORGANIZ ATION 08/06/2024 [facility] DATE CREATED AUTHOR AUTHOR'S ORGANIZ ATION 07/16/2025 [facility] Patient Care team [email or web address] n (unrecognized section and content) Personnel Name: Lindsay Pérez Address: Address: [address] [place] [address]- Personnel Name: Lindsay Pérez Address: Address: [address] [place] [address]- FOR RECORDS PERTAINING TO PATIENTS WHO ARE OR HAVE BEEN ENROLLED IN A CHEMICAL DEPENDENCY/SUBSTANCEABUSE PROGRAM, SOME INFORMATION MAY BE OMITTED. This clinical summary was aggregated from multiple sources. Caution should be exercised in using it in the provision of clinical care. This summary normalizes information from multiple sources, and as a consequence, information in this document may materially change the coding, format and clinical context of patient data. In addition, data may be omitted in some cases. CLINICAL DECISIONS SHOULD BE BASED ON THE PRIMARY CLINICAL RECORDS. [facility] [email or web address] [facility]. provides no warranty or guarantee of the accuracy or completeness of information in this document.
== END 2025-07-17 12:14 | disposition home or self-care (01) ==
LOC: RAD 12:15
PROVIDERS: PCP Nurse Practitioner; Visit Provider Nurse Practitioner
DX: M54.2 Cervicalgia (principal)
CPT/HCPCS: 72050